=== PATIENT | male | born 1995 ===

== ENCOUNTER 2021-01-26 17:14 | Emergency (ER) | payer OTHER, SELFPAY ==
--- NOTE | ~2021-01-26 | XR_ITS ---
EXAMINATION: XR CHEST CLINICAL INFORMATION: Chest pressure COMPARISON: None TECHNIQUE: 2 views of the chest were obtained. FINDINGS: No significant abnormality is noted involving the heart, lungs, mediastinum, bony thorax or soft tissues. XR/XR chest 2V IMPRESSION: Unremarkable examination.
[2021-01-26 17:28] VITALS: BP 137/65; PULSE 98; RESP 23; TEMP 36.9; O2SAT 100; BMI 25.7
[2021-01-26 18:48] VITALS: BP 139/77; PULSE 88; RESP 20; TEMP 36.1; O2SAT 100
--- NOTE | 2021-01-26 19:18 | ECG_ITS ---
Test Reason : HEST PRESSURE Blood Pressure : / mmHG Vent. Rate : 079 BPM Atrial Rate : 079 BPM P-R Int : 150 ms QRS Dur : 082 ms QT Int : 368 ms P-R-T Axes : 057 042 012 degrees QTc Int : 421 ms Normal sinus rhythm with sinus arrhythmia Normal ECG No previous ECGs available Referred By: Anaya Garcia Electronically Signed By:Preston Alatorre
--- NOTE | 2021-01-26 19:19 | ED.ANXIETY ---
HPI - Anxiety General Chief Complaint: Anxiety Stated Complaint: Anxiety Time Seen by Provider: 01/26/21 19:18 Source: patient Mode of arrival: ambulatory Limitations: no limitations History of Present Illness HPI narrative: 25-year-old male presents with suspected anxiety attack, and chest pressure. States that he has had chest pressure for past several days, pressure starts when he wakes up in the morning and gets worse as the day goes on. He does not report any trauma, palpitations, shortness of breath, shortness of breath on exertion, abdominal pain, abdominal distention, dysuria, hematuria, fevers, chills, or any other concerning symptoms. MD complaint: anxiety Onset (ago): day(s) Symptoms: sense of impending doom and other (Pressure) Severity: moderate Quality: constant Place: home History of similar episodes: Yes Provoking factors: none known Relieving factors: nothing Exacerbating factors: thinking about event Associated symptoms: denies other symptoms Related Data Previous Rx's Medication Instructions Recorded hydroxyzine HCl 50 mg PO TID PRN #20 tab 01/26/21 Allergies Allergy/AdvReac Type Severity Reaction Status Date / Time No Known Allergies Allergy Verified 01/26/21 17:27 Review of Systems Review of Systems: Constitutional: No Fever, No Chills ENT/Mouth: No sore throat, No Rhinorrhea Eyes: No Eye Pain, No Swelling, No Redness Cardiovascular: Positive chest pressure, No Chest Pain, No SOB Respiratory: No Cough, No Sputum Gastrointestinal: No Nausea, No Vomiting, No Diarrhea, No abdominal Pain Genitourinary: No Dysuria, No Hematuria Musculoskeletal: No joint pain, No Myalgias, No Joint Swelling Skin: No Skin Lesions, No rash Neuro: No Weakness, No Numbness, No Loss of Consciousness, No Dizziness, No Headache Psych: Positive Anxiety, No Depression, No SI/HI/AH/VH Heme/Lymph: No Bruising, No Bleeding,No Lymphadenopathy Endocrine: No Polyuria, No Polydipsia Yes all other systems are reviewed and are negative [facility] Past Medical History Attestation statement: The following information was validated with the patient. Source: old records reviewed Medical History Anxiety Colitis COVID-19 Social History Social History Advance Directives: Yes Advance Directives Information Provided: Yes Advance Directives on File: No Physical Exam Vital Signs: Vital Signs: Last Vital Signs Temp 96.9 F 01/26/21 20:31 Pulse 89 01/26/21 20:31 Resp 12 01/26/21 20:31 BP 164/74 H 01/26/21 20:31 Pulse Ox 92 01/26/21 20:31 Body Mass Index 25.7 Appearance: Alert. Oriented X3. No acute distress. Eyes: Pupils equal, round and reactive to light. ENT: Pharynx normal. Neck: Normal inspection. Neck supple. CVS: Normal heart rate and rhythm. Pulses normal. Respiratory: No respiratory distress. Breath sounds normal. Abdomen: Soft and nontender. Skin: Skin warm and dry. Normal skin color. Normal skin turgor. Extremities: No lower extremity edema. Neuro: No motor deficit. No sensory deficit. Course Course Course Narrative: 25-year-old male presents with symptoms consistent with anxiety. Does report some chest pressure, will order chest x-ray and EKG. Patient states that does not feel like the symptoms are as bad as they were prior to his arrival to the emergency department. He does have a known history of anxiety, and is able to follow up with Psychiatry as an outpatient basis. He does not report suicidal or homicidal ideation, he does smoke tobacco but does not participate in any illicit drugs. Chest x-ray is normal, EKG is normal sinus. Plan of care is to give a prescription for hydroxyzine for anxiety and have patient follow up with Psychiatry as an outpatient. Patient verbalizes understanding of and agrees to plan of care discharge home. MDM - Anxiety Differential Diagnosis Differential diagnosis: Likely hyperventilation, panic disorder and acute anxiety Medical Records Attestation: I reviewed the patient's medical records. Imaging Data Chest x-ray: Attestation: I personally reviewed and interpreted this imaging study as follows: Radiologist's impression: EXAMINATION: XR CHEST CLINICAL INFORMATION: Chest pressure COMPARISON: None TECHNIQUE: 2 views of the chest were obtained. FINDINGS: No significant abnormality is noted involving the heart, lungs, mediastinum, bony thorax or soft tissues. XR/XR chest 2V IMPRESSION: Unremarkable examination. ECG Data Attestation: I personally reviewed and interpreted this ECG as follows: ECG interpretation date: 01/26/21 ECG interpretation time: 19:47 Prior ECG tracings: not available for review Interpretation: Vent. rate 79 BPM MA interval 150 ms QRS duration 82 ms QT/QTc 368/421 ms P-R-T axes 57 42 12 Normal sinus rhythm with sinus arrhythmia Normal ECG No previous ECGs available Discharge Plan Discharge Clinical Impression: Acute anxiety Patient Disposition: Home, Self-Care Instructions: Anxiety (ED) Additional Instructions: You were evaluated for chest pressure and anxiety. EKG is normal sinus rhythm, chest x-ray was normal. I prescribed hydroxyzine for anxiety. You may consider following up with outpatient psychiatry. Thank you for choosing this emergency department for evaluation. Please follow-up with primary care physician as needed. Return to the emergency department for any new, concerning, or worsening symptoms. Prescriptions: New hydroxyzine HCl 50 mg tablet 50 mg PO TID PRN (Reason: anxiety) Qty: 20 RF: 0 Interventions: ED Discharge Assessment Last Done: 01/26/21 21:01 Discharge Date/Time: 01/26/21 21:01
[2021-01-26 20:31] VITALS: BP 164/74; PULSE 89; RESP 12; TEMP 36.1; O2SAT 92
== END 2021-01-26 21:01 | disposition home or self-care (01) ==
PROVIDERS: Emergency Provider Internal Medicine
DX: F41.9 Anxiety disorder, unspecified (principal); R07.89 Other chest pain
CPT/HCPCS: 71046; 93005; 99283; 99284